=== PATIENT | female | born 1955 | race Caucasian/White ===

== ENCOUNTER 2018-03-26 10:59 | Day surgery (SDC) | payer BC, OTHER ==
[2018-03-26] MEDS: NS 1,000 ML IV (12:08)
[2018-03-26] MEDS ORDERED: fentaNYL 100 MCG/2 ML INJECTION (J3010) As Ordered (12:52)
[2018-03-26] MEDS ORDERED: PROPOFOL 200 MG/20 ML VIAL As Ordered ×2 (13:15)
[2018-03-26] MEDS ORDERED: LIDOCAINE 2% INJ 100 MG/5 ML SDV (FOR ANES.) As Ordered (13:16)
== END 2018-03-26 13:36 | disposition home or self-care (01) ==
LOC: M OPP 10:59
DX: Z12.11 Encounter for screening for malignant neoplasm of colon (principal); Z86.010 Personal history of colon polyps; K57.30 Diverticulosis of large intestine without perforation or abscess without bleeding; K64.8 Other hemorrhoids; R13.10 Dysphagia, unspecified; R12 Heartburn; R00.8 Other abnormalities of heart beat; R07.89 Other chest pain; I73.9 Peripheral vascular disease, unspecified; K74.60 Unspecified cirrhosis of liver; E11.51 Type 2 diabetes mellitus with diabetic peripheral angiopathy without gangrene; R00.2 Palpitations; I83.10 Varicose veins of unspecified lower extremity with inflammation; E04.2 Nontoxic multinodular goiter; K76.0 Fatty (change of) liver, not elsewhere classified; R10.13 Epigastric pain; K21.9 Gastro-esophageal reflux disease without esophagitis; R06.02 Shortness of breath; M19.90 Unspecified osteoarthritis, unspecified site; G35 Multiple sclerosis; J45.909 Unspecified asthma, uncomplicated; E66.9 Obesity, unspecified; G47.30 Sleep apnea, unspecified; R06.83 Snoring; F41.9 Anxiety disorder, unspecified; R33.9 Retention of urine, unspecified; R32 Unspecified urinary incontinence; Z88.1 Allergy status to other antibiotic agents; Z91.048 Other nonmedicinal substance allergy status; Z79.82 Long term (current) use of aspirin; Z79.899 Other long term (current) drug therapy; Z79.84 Long term (current) use of oral hypoglycemic drugs; Z80.3 Family history of malignant neoplasm of breast; Z80.51 Family history of malignant neoplasm of kidney; Z80.8 Family history of malignant neoplasm of other organs or systems
CPT/HCPCS: G0105

== ENCOUNTER → 2020-11-11 | Outpatient (REF) | payer OTHER ==
[~2020-11-11] MED LIST: ASPI81TA26 PO; CLIN1GEL22 EX; COQ-100C2 PO; FURO20TA2 PO; GARC500T PO; GARL500T PO; MAGN1TAB26 PO; METF-838 PO; MIRA3350 PO; OMEG1CAP16 PO; OMEP40CA97 PO; POTA99TA PO; VITA-243 PO; VITA500046 PO; VITATAB11 PO; ZINC1TAB2 PO; ZYRT10CA5 PO
[2020-11-11 19:52] LABS: CREATININE, URINE 21.7 MG/DL; MALB URINE SIEMENS < 5.0 MG/L
== END ==
LOC: M LAB REF 16:46
PROVIDERS: ATTEND Nurse Practitioner Family
DX: E11.65 Type 2 diabetes mellitus with hyperglycemia (principal)

== ENCOUNTER → 2021-04-12 | Outpatient (REF) | payer OTHER ==
[~2021-04-12] MED LIST changes: +OMEP40CA4 PO; -OMEP40CA97 PO
== END ==
LOC: M LAB REF 12:21
PROVIDERS: ATTEND Physician Assistant Medical
DX: R19.8 Other specified symptoms and signs involving the digestive system and abdomen (principal)

== ENCOUNTER → 2021-08-11 | Outpatient (CLI) | payer OTHER ==
[~2021-08-11] MED LIST changes: +AMLO2.5T3 PO; +ATOR1TAB19 PO; +BIOT1CAP3 PO; +COQ-100C5 PO; +D32000TA PO; +FARX1TAB5 PO; +FOLI800C PO; +GARL1000 PO; +LEVOTAB10 PO; +MAGN1CAP PO; +METO1TAB32 PO; +MILK175T PO; +OMEP40CA5 PO; +PANT40TA29 PO; +POTA595T16 PO; +SUCR1TAB56 PO; +TURM500C PO; +omega 3 krill oil PO
== END ==
LOC: M LABSMTC 11:01
PROVIDERS: ATTEND Anesthesiology
DX: Z01.818 Encounter for other preprocedural examination (principal); Z11.52 Encounter for screening for COVID-19

== ENCOUNTER 2021-08-16 06:49 | Day surgery (SDC) | payer BC, OTHER ==
[~2021-08-16] VITALS: Ht 157.5 cm; Wt 98.4 kg
[~2021-08-16 06:49] MED LIST changes: +LIDOCAINE 2% 100MG/5ML SDV (FOR ANES.) As Ordered ONE; +NS 1,000 ML IV ONE; +fentaNYL 100 MCG/2 ML INJECTION As Ordered ONE; +propofoL 500 MG/50 ML VIAL As Ordered ONE
[2021-08-16 08:50] VITALS: BP 116/56
== END 2021-08-16 09:00 | disposition home or self-care (01) ==
LOC: M OPP 06:49
PROVIDERS: ATTEND Internal Medicine Gastroenterology
DX: Z12.11 Encounter for screening for malignant neoplasm of colon (principal); Z86.010 Personal history of colon polyps; K63.5 Polyp of colon; K57.30 Diverticulosis of large intestine without perforation or abscess without bleeding; K64.8 Other hemorrhoids; R12 Heartburn; Z79.82 Long term (current) use of aspirin; Z79.899 Other long term (current) drug therapy; Z88.1 Allergy status to other antibiotic agents; Z91.048 Other nonmedicinal substance allergy status
CPT/HCPCS: 43235; 45385; 88305; J3010

== ENCOUNTER → 2022-09-21 | Outpatient (REF) | payer OTHER ==
[~2022-09-21] MED LIST changes: -LIDOCAINE 2% 100MG/5ML SDV (FOR ANES.) As Ordered ONE; -NS 1,000 ML IV ONE; -fentaNYL 100 MCG/2 ML INJECTION As Ordered ONE; -propofoL 500 MG/50 ML VIAL As Ordered ONE
[2022-09-21 18:10] LABS: CREATININE, URINE 37.8 MG/DL; MALB URINE SIEMENS < 3.0 MG/L; MAU/CREAT RATIO 7.9 MCG/MG (0.0-30.0)
== END ==
LOC: M LAB REF 16:57
PROVIDERS: ATTEND Internal Medicine
DX: E11.65 Type 2 diabetes mellitus with hyperglycemia (principal)

== ENCOUNTER → 2023-11-19 | Outpatient (REF) | payer MEDICARE, BC | LOC: M SFHCDERM 15:20 | PROVIDERS: ATTEND Physician Assistant | DX: M25.50 Pain in unspecified joint (principal) ==

== ENCOUNTER → 2024-11-06 | Outpatient (REF) | payer MEDICARE, OTHER | LOC: M LAB REF 12:54 | PROVIDERS: ATTEND Physician Assistant Medical | DX: R19.4 Change in bowel habit (principal); R19.7 Diarrhea, unspecified; R10.11 Right upper quadrant pain ==

== ENCOUNTER 2024-12-25 11:40 | Day surgery (SDC) | payer MEDICARE, BC ==
[~2024-12-25] VITALS: Ht 154.9 cm; Wt 109.3 kg
[~2024-12-25 11:40] MED LIST changes: +LOSA25TA13 PO; +MAGN500T12 PO
[2024-12-25 13:11] VITALS: TEMP 97.5
[2024-12-25] MEDS ORDERED: LIDOCAINE 2% 100 MG/5 ML SDV (FOR ANES.) As Ordered ONE (13:23)
[2024-12-25 13:40] VITALS: BP 116/56; O2SAT 97
== END 2024-12-25 13:44 | disposition home or self-care (01) ==
LOC: M OPP 11:40
PROVIDERS: ATTEND Internal Medicine Gastroenterology
DX: D12.4 Benign neoplasm of descending colon (principal); D12.2 Benign neoplasm of ascending colon; K64.8 Other hemorrhoids; K57.30 Diverticulosis of large intestine without perforation or abscess without bleeding; R10.84 Generalized abdominal pain; R19.4 Change in bowel habit; K31.7 Polyp of stomach and duodenum; R10.13 Epigastric pain; R11.0 Nausea; G47.30 Sleep apnea, unspecified; Z88.1 Allergy status to other antibiotic agents; Z91.048 Other nonmedicinal substance allergy status; Z79.82 Long term (current) use of aspirin; Z79.84 Long term (current) use of oral hypoglycemic drugs; Z79.899 Other long term (current) drug therapy; J45.909 Unspecified asthma, uncomplicated
CPT/HCPCS: 43251; 45385; 88305; J3010